=== PATIENT | female | born 1995 | race American Indian/Alaskan Native ===

== ENCOUNTER 2017-11-10 18:17 | Emergency (ER) | payer MEDICAID ==
[~2017-11-10] VITALS: Ht 165.1 cm; Wt 56.0 kg
[2017-11-10] MEDS ORDERED: diphenhydrAMINE 50 mg/ml inj IM ONE (19:05)
[2017-11-10] MEDS ORDERED: LORazepam 2 mg/ml vial IM ONE (19:05)
[2017-11-10] MEDS ORDERED: morphine 4 MG/ML inj SYRINge IM ONE (19:05)
[2017-11-10 22:06] VITALS: BP 117/86
== END 2017-11-10 20:16 | disposition home or self-care (01) ==
LOC: ER 18:19
DX: K91.841 Postprocedural hemorrhage of a digestive system organ or structure following other procedure (principal); K08.89 Other specified disorders of teeth and supporting structures; F12.10 Cannabis abuse, uncomplicated
CPT/HCPCS: 96372; 99284; J1200; J2060; J2270